=== PATIENT | female | born 1995 | race Caucasian/White ===

== ENCOUNTER 2017-04-04 04:16 | Emergency (ER) | payer OTHER ==
[~2017-04-04] VITALS: Ht 172.7 cm; Wt 81.7 kg
[~2017-04-04 04:16] MED LIST: ACET325; CLOTRIMAZOLE AF TOP; EMOQUETTE1 EACH PO; FLUC200 PO; IBUP600; IBUP600 PO; MULVITMIND PO; Zithromax250 MG PO; Zofran Odt4 MG SL
[2017-04-04 05:07] LABS: Source, Urine Clean Catch
[2017-04-04 05:16] LABS: Bilirubin, Urine Neg (Neg); Blood, Urine Neg (Neg); Glucose Qualitative, Urine Neg (Neg); Ketones, Urine Neg (Neg); Leukocyte Esterase, Urine Neg (Neg); Nitrite, Urine Neg (Neg); Protein, Urine Neg (Neg); Urobilinogen, Urine NORM (Normal); pH, Urine 6.5 (5.0-8.0)
[2017-04-04 05:25] LABS: Appearance, Urine Clear (Clear); Color, Urine Yellow (P-Yellow)
[2017-04-04 05:31] LABS: Influenza A Negative (NEGATIVE); Influenza B Negative (NEGATIVE)
[2017-04-04 05:32] LABS: U Amphetamine Screen Not Detected; U Barbituate Screen Not Detected; U Benzodiazapine Screen Not Detected; U Buprenorphine Screen Not Detected; U Cannabinoids Screen DETECTED; U Cocaine Screen Not Detected; U Methadone Screen Not Detected; U Methamphetamine Screen Not Detected; U Opiates Screen Not Detected; U Oxycodone Screen Not Detected; U Phencyclidine Screen Not Detected; U Propoxyphene Screen Not Detected
[2017-04-04] MEDS ORDERED: Zofran Odt4 MG PO (05:46)
[2017-04-04] MEDS ORDERED: LEVFLO500 PO (13:34)
[2017-04-04] MEDS ORDERED: Norco 5-325 Ta1 EACH PO (13:34)
[2017-04-04] MEDS ORDERED: IBUP800 PO (13:34)
[2017-11-06] MEDS ORDERED: BENZ100A PO (15:28)
[2017-11-06] MEDS ORDERED: Prednisone20 MG PO (15:28)
[2017-11-06] MEDS ORDERED: ALBU90OI INH (15:28)
== END 2017-04-04 06:17 | disposition home or self-care (01) ==
LOC: ER 04:16
PROVIDERS: Emergency Medicine
DX: J06.9 Acute upper respiratory infection, unspecified (principal); F17.210 Nicotine dependence, cigarettes, uncomplicated; Z88.0 Allergy status to penicillin
CPT/HCPCS: 71046; 81003; 81025; 87081; 87430; 87804; 99283

== ENCOUNTER 2017-04-04 11:12 | Emergency (ER) | payer OTHER ==
[~2017-04-04] VITALS: Ht 172.7 cm; Wt 81.7 kg
[~2017-04-04 11:12] MED LIST changes: +Zofran Odt4 MG PO
[2017-04-04 11:52] LABS: BASOPHILS ABSOLUTE AUTO 0.09 K/mm3 (0.00-0.23); BASOPHILS PERCENT AUTO 0 % (0-2); EOSINOPHILS ABSOLUTE AUTO 0.08 K/mm3 (0.00-0.68); EOSINOPHILS PERCENT AUTO 0 % (0-6); Hematocrit 36.5 % (33.0-51.0); Hemoglobin 12.4 g/dL (11.5-16.0); IMMATURE GRAN ABSOLUTE AUTO 0.19 K/mm3 (0.00-0.10); IMMATURE GRAN PERCENT AUTO 1 % (0-1); LYMPHOCYTES PERCENT AUTO 5 % (21-46); MONOCYTES PERCENT AUTO 8 % (4-13); Mean Corpuscular HGB 30.9 pg (26.0-34.0); Mean Corpuscular Volume 91 fL (80-100); Mean Platelet Volume 9.1 fL (9.1-12.4); NEUTROPHILS PERCENT AUTO 85 % (41-73); Platelet Count 350 K/mm3 (150-400); RDW Coefficient Variation 11.8 % (11.7-14.2); RDW Standard Deviation 39.7 fL (35.1-46.3); Red Blood Cell Count 4.01 M/mm3 (3.80-5.20); White Blood Cell Count 23.86 K/mm3 (4.00-11.30)
[2017-04-04 12:22] LABS: Alanine Aminotransfer (ALT/SGP 15 U/L (12-78); Albumin, Blood 3.9 g/dL (3.4-5.0); Albumin/Globulin Ratio 0.9 (0.8-1.8); Alk Phos 71 U/L (45-116); Anion Gap 8 mmol/L (6-16); Aspartate Aminotrans (AST/SGOT 14 U/L (12-37); Bilirubin, Total 0.8 mg/dL (0.1-1.0); Blood Urea Nitrogen 8 mg/dL (8-21); Bun/Creatinine Ratio 15.4 (12.0-20.0); CO2, Blood 26 mmol/L (21-32); Calcium, Blood 8.5 mg/dL (8.5-10.1); Chloride, Blood 103 mmol/L (98-108); Creatinine, Blood 0.52 mg/dL (0.40-1.00); Globulin, Blood 4.3 g/dL (2.2-4.0); Glomerular Filtration Rate >60 (60-); Glucose, Blood 99 mg/dL (70-99); Potassium, Blood 3.6 mmol/L (3.5-5.5); Sodium, Blood 137 mmol/L (136-145); Total Protein, Blood 8.2 g/dL (6.4-8.2)
[2017-04-04] MEDS ORDERED: IBUP800 PO (13:34)
[2017-04-04] MEDS ORDERED: Norco 5-325 Ta1 EACH PO (13:34)
[2017-04-04] MEDS ORDERED: LEVFLO500 PO (13:34)
[2017-11-06] MEDS ORDERED: BENZ100A PO (15:28)
[2017-11-06] MEDS ORDERED: Prednisone20 MG PO (15:28)
[2017-11-06] MEDS ORDERED: ALBU90OI INH (15:28)
== END 2017-04-04 14:19 | disposition home or self-care (01) ==
LOC: ER 11:12
PROVIDERS: Emergency Medicine
DX: R51 Headache (principal); R00.0 Tachycardia, unspecified; Z88.0 Allergy status to penicillin
CPT/HCPCS: 36415; 80053; 85025; 96361; 96374; 96375; 99283; J1170; J1885; J2765; J7030

== ENCOUNTER 2017-08-04 09:10 | Emergency (ER) | payer OTHER ==
[~2017-08-04] VITALS: Ht 175.3 cm; Wt 81.7 kg
[~2017-08-04 09:10] MED LIST changes: +IBUP800 PO; +LEVFLO500 PO; +Norco 5-325 Ta1 EACH PO
[2017-08-04] MEDS ORDERED: SINUS 12 HOUR120 MG PO (10:08)
[2017-08-04] MEDS ORDERED: Flonase 0.05% N16 GM (10:08)
[2017-08-04] MEDS ORDERED: MONDOXYNE NL100 MG PO (10:08)
== END 2017-08-04 10:14 | disposition home or self-care (01) ==
LOC: ER 09:10
DX: J32.9 Chronic sinusitis, unspecified (principal); Z88.0 Allergy status to penicillin; F17.200 Nicotine dependence, unspecified, uncomplicated
CPT/HCPCS: 99283

== ENCOUNTER 2017-08-16 18:49 | Emergency (ER) | payer OTHER ==
[~2017-08-16] VITALS: Ht 172.7 cm; Wt 81.7 kg
[~2017-08-16 18:49] MED LIST changes: +Flonase 0.05% N16 GM; +MONDOXYNE NL100 MG PO; +SINUS 12 HOUR120 MG PO
== END 2017-08-16 20:05 | disposition home or self-care (01) ==
LOC: ER 18:49
DX: S60.222A Contusion of left hand, initial encounter (principal); W22.8XXA Striking against or struck by other objects, initial encounter; Z88.0 Allergy status to penicillin; Z79.899 Other long term (current) drug therapy; F17.200 Nicotine dependence, unspecified, uncomplicated
CPT/HCPCS: 73130; 99283

== ENCOUNTER 2018-02-13 23:03 | Emergency (ER) | payer OTHER ==
[~2018-02-13] VITALS: Ht 175.3 cm; Wt 81.7 kg
[~2018-02-13 23:03] MED LIST changes: +ALBU90OI INH; +BENZ100A PO; +Prednisone20 MG PO
[2018-02-14 02:34] LABS: Source, Urine Clean Catch
[2018-02-14 02:38] LABS: Appearance, Urine Hazy (Clear); Bilirubin, Urine Neg (Neg); Blood, Urine 3+ (Neg); Color, Urine Yellow (P-Yellow); Glucose Qualitative, Urine Neg (Neg); Ketones, Urine Neg (Neg); Leukocyte Esterase, Urine 3+ (Neg); Nitrite, Urine Neg (Neg); Protein, Urine 2+ (Neg); Urobilinogen, Urine NORM (Normal)
[2018-02-14 02:47] LABS: Bacteria Many /hpf; Red Blood Cells, Urine 0-2 /hpf (0-2); Squamous Epithelial Cells Few /hpf (Few); White Blood Cells, Urine TNTC /hpf (0-5)
[2018-02-14] MEDS ORDERED: CEPH500 PO (03:28)
[2018-02-14] MEDS ORDERED: Pyridium100 MG PO (03:28)
== END 2018-02-14 03:40 | disposition home or self-care (01) ==
LOC: ER 23:03
PROVIDERS: Emergency Medicine
DX: N39.0 Urinary tract infection, site not specified (principal); Z88.0 Allergy status to penicillin; Z79.899 Other long term (current) drug therapy; Z79.52 Long term (current) use of systemic steroids; F17.290 Nicotine dependence, other tobacco product, uncomplicated
CPT/HCPCS: 81001; 87077; 87086; 87186; 99283

== ENCOUNTER 2018-03-27 16:52 | Emergency (ER) | payer OTHER ==
[~2018-03-27] VITALS: Ht 172.7 cm; Wt 86.2 kg
[~2018-03-27 16:52] MED LIST changes: +CEPH500 PO; +Pyridium100 MG PO
[2018-03-27] MEDS ORDERED: Sudogest60 MG PO (17:49)
[2018-03-27] MEDS ORDERED: Cheratussin AC118 ML PO (17:49)
== END 2018-03-27 17:56 | disposition home or self-care (01) ==
LOC: ER 16:52
DX: J02.9 Acute pharyngitis, unspecified (principal); Z88.0 Allergy status to penicillin; Z87.891 Personal history of nicotine dependence
CPT/HCPCS: 87081; 87430; 99283

== ENCOUNTER 2018-09-18 14:49 | Emergency (ER) | payer OTHER ==
[~2018-09-18] VITALS: Ht 172.7 cm; Wt 81.7 kg
[~2018-09-18 14:49] MED LIST changes: +Cheratussin AC118 ML PO; +Daily Vitamin1 EAC8 PO; +Monodox100 MG PO; +PSEU120ER PO; +Sudogest60 MG PO
[2018-09-18] MEDS ORDERED: IBUP800 PO (15:15)
== END 2018-09-18 15:27 | disposition home or self-care (01) ==
LOC: ER 14:49
DX: S83.91XA Sprain of unspecified site of right knee, initial encounter (principal); X58.XXXA Exposure to other specified factors, initial encounter; Z88.0 Allergy status to penicillin; Z79.899 Other long term (current) drug therapy; Z87.891 Personal history of nicotine dependence
CPT/HCPCS: 99283

== ENCOUNTER → 2019-01-13 | Outpatient (CLI) | payer SELFPAY ==
[2019-01-14 06:31] LABS: Candida species (DNA Probe) Positive (NEGATIVE); G. vaginalis (DNA Probe) Negative (NEGATIVE); T. vaginalis (DNA Probe) Negative (NEGATIVE)
[2019-01-16 02:06] LABS: CHLAMYDIA TRACHOMATIS, NAA Negative (Negative); NEISSERIA GONORRHOEAE, NAA Negative (Negative)
== END | disposition home or self-care (01) ==
LOC: LAB SHORT 11:27 → LAB EV 11:27
PROVIDERS: Physician Assistant
DX: R30.9 Painful micturition, unspecified (principal)
CPT/HCPCS: 87086; 87480; 87491; 87510; 87591; 87660

== ENCOUNTER 2019-12-26 15:34 | Emergency (ER) | payer OTHER ==
[~2019-12-26] VITALS: Ht 172.7 cm; Wt 77.1 kg
[2019-12-26] MEDS ORDERED: ALBU90OI INH (17:48)
[2019-12-26] MEDS ORDERED: DEXT30SU PO (17:48)
[2019-12-26] MEDS ORDERED: METPRE4DP PO (17:48)
[2019-12-26] MEDS ORDERED: Zithromax250 MG PO (17:48)
== END 2019-12-26 18:15 | disposition home or self-care (01) ==
LOC: ER 15:34
DX: J41.1 Mucopurulent chronic bronchitis (principal); Z88.0 Allergy status to penicillin; Z79.899 Other long term (current) drug therapy; Z87.891 Personal history of nicotine dependence
CPT/HCPCS: 71045; 99283-25

== ENCOUNTER 2020-01-23 18:08 | Emergency (ER) | payer OTHER ==
[~2020-01-23] VITALS: Ht 175.3 cm; Wt 77.1 kg
[~2020-01-23 18:08] MED LIST changes: +DEXT30SU PO; +METPRE4DP PO
[2020-01-23 19:07] LABS: BASOPHILS ABSOLUTE AUTO 0.05 K/mm3 (0.00-0.23); BASOPHILS PERCENT AUTO 1 % (0-2); EOSINOPHILS ABSOLUTE AUTO 0.37 K/mm3 (0.00-0.68); EOSINOPHILS PERCENT AUTO 6 % (0-6); Hematocrit 37.7 % (33.0-51.0); Hemoglobin 12.3 g/dL (11.5-16.0); IMMATURE GRAN ABSOLUTE AUTO 0.01 K/mm3 (0.00-0.10); IMMATURE GRAN PERCENT AUTO 0 % (0-1); LYMPHOCYTES ABSOLUTE AUTO 1.92 K/mm3 (0.84-5.20); LYMPHOCYTES PERCENT AUTO 30 % (21-46); MONOCYTES PERCENT AUTO 13 % (4-13); Mean Corpuscular HGB 30.7 pg (26.0-34.0); Mean Corpuscular HGB Conc 32.6 g/dL (31.5-36.5); Mean Corpuscular Volume 94 fL (80-100); NEUTROPHILS ABSOLUTE AUTO 3.17 K/mm3 (1.96-9.15); NEUTROPHILS PERCENT AUTO 50 % (41-73); Platelet Count 319 K/mm3 (150-400); RDW Coefficient Variation 11.6 % (11.7-14.2); RDW Standard Deviation 39.9 fL (35.1-46.3); Red Blood Cell Count 4.01 M/mm3 (3.80-5.20); White Blood Cell Count 6.32 K/mm3 (4.00-11.30)
[2020-01-23 19:43] LABS: Alanine Aminotransfer (ALT/SGP 15 U/L (12-78); Albumin, Blood 3.9 g/dL (3.4-5.0); Albumin/Globulin Ratio 1.1 (0.8-1.8); Alk Phos 48 U/L (50-136); Anion Gap 4 mmol/L (6-16); Aspartate Aminotrans (AST/SGOT 11 U/L (12-37); Bilirubin, Total 0.5 mg/dL (0.1-1.0); Blood Urea Nitrogen 14 mg/dL (8-24); Bun/Creatinine Ratio 19.8 (12.0-20.0); CO2, Blood 25 mmol/L (21-32); Calcium, Blood 9.2 mg/dL (8.5-10.1); Chloride, Blood 109 mmol/L (98-108); Creatinine, Blood 0.71 mg/dL (0.40-1.00); Globulin, Blood 3.6 g/dL (2.2-4.0); Glomerular Filtration Rate >60 (60-); Glucose, Blood 88 mg/dL (70-99); Potassium, Blood 4.3 mmol/L (3.5-5.5); Sodium, Blood 138 mmol/L (136-145); Total Protein, Blood 7.5 g/dL (6.4-8.2)
[2020-01-23 20:05] LABS: Source, Urine Clean Catch
[2020-01-23 20:07] LABS: Bilirubin, Urine Neg (Neg); Blood, Urine 1+ (Neg); Glucose Qualitative, Urine Neg (Neg); Ketones, Urine Neg (Neg); Leukocyte Esterase, Urine Neg (Neg); Nitrite, Urine Neg (Neg); Protein, Urine Neg (Neg); Specific Gravity, Urine 1.015 (1.003-1.022); Urobilinogen, Urine NORM (Normal); pH, Urine 6.5 (5.0-8.0)
[2020-01-23 20:15] LABS: Appearance, Urine Clear (Clear); Color, Urine Yellow (P-Yellow)
[2020-01-23 20:17] LABS: Bacteria Mod /hpf; Red Blood Cells, Urine 0-2 /hpf (0-2); Squamous Epithelial Cells Few /hpf (Few)
[2020-01-23] MEDS ORDERED: KEFLEX500 MG PO (22:04)
== END 2020-01-23 22:35 | disposition home or self-care (01) ==
LOC: ER 18:08
PROVIDERS: Emergency Medicine
DX: N39.0 Urinary tract infection, site not specified (principal); N12 Tubulo-interstitial nephritis, not specified as acute or chronic; Z88.0 Allergy status to penicillin; Z87.891 Personal history of nicotine dependence; Z79.899 Other long term (current) drug therapy
CPT/HCPCS: 36415; 80053; 81001; 81025; 85025; 87077; 87086; 87186; 96365; 99283-25; J0696

== ENCOUNTER 2020-03-13 12:45 | Emergency (ER) | payer OTHER ==
[~2020-03-13] VITALS: Ht 172.7 cm; Wt 72.6 kg
[~2020-03-13 12:45] MED LIST changes: +KEFLEX500 MG PO
[2020-03-13] MEDS ORDERED: FLONASE ALLERG9.9 ML (13:13)
[2020-03-13] MEDS ORDERED: LEVO750 PO (13:13)
[2020-03-13] MEDS ORDERED: PSEUDOEPHEDRINE30 M3 PO (13:13)
== END 2020-03-13 13:26 | disposition home or self-care (01) ==
LOC: ER 12:45
DX: J32.9 Chronic sinusitis, unspecified (principal); Z88.0 Allergy status to penicillin; Z87.891 Personal history of nicotine dependence
CPT/HCPCS: 99283

== ENCOUNTER 2020-05-28 12:22 | Emergency (ER) | payer OTHER ==
[~2020-05-28] VITALS: Ht 172.7 cm; Wt 79.4 kg
[~2020-05-28 12:22] MED LIST changes: +FLONASE ALLERG9.9 ML; +LEVO750 PO; +PSEUDOEPHEDRINE30 M3 PO
== END 2020-05-28 15:09 | disposition left against medical advice (07) ==
LOC: ER 12:22
DX: Z53.21 Procedure and treatment not carried out due to patient leaving prior to being seen by health care provider (principal)

== ENCOUNTER 2021-04-21 03:10 | Emergency (ER) | payer OTHER ==
[~2021-04-21] VITALS: Ht 175.3 cm; Wt 66.2 kg
[2021-04-21 03:59] LABS: Source, Urine Clean Catch
[2021-04-21 04:01] LABS: Bilirubin, Urine Neg (Neg); Blood, Urine 2+ (Neg); Glucose Qualitative, Urine Neg (Neg); Ketones, Urine Neg (Neg); Leukocyte Esterase, Urine 2+ (Neg); Nitrite, Urine Neg (Neg); Protein, Urine Neg (Neg); Specific Gravity, Urine 1.005 (1.003-1.022); Urobilinogen, Urine NORM (Normal)
[2021-04-21 04:08] LABS: Appearance, Urine Clear (Clear); Color, Urine Pale Yellow (P-Yellow)
[2021-04-21 04:10] LABS: Bacteria Few /hpf; Red Blood Cells, Urine 0-2 /hpf (0-2); Squamous Epithelial Cells Rare /hpf (Few)
[2021-04-21] MEDS ORDERED: NITR100CA PO (04:24)
== END 2021-04-21 22:09 | disposition home or self-care (01) ==
LOC: ER 03:10
PROVIDERS: Student in an Organized Health Care Education/Training Program
DX: N39.0 Urinary tract infection, site not specified (principal); Z87.891 Personal history of nicotine dependence; Z79.899 Other long term (current) drug therapy; Z88.0 Allergy status to penicillin
CPT/HCPCS: 81001; 81025; 87077; 87086; 87186; 99283; A9270

== ENCOUNTER 2022-03-13 11:19 | Emergency (ER) | payer OTHER ==
[~2022-03-13] VITALS: Ht 172.7 cm; Wt 74.8 kg
[~2022-03-13 11:19] MED LIST changes: +NITR100CA PO
[2022-03-13] MEDS ORDERED: ALBU90OI INH (11:40)
[2022-03-13 12:29] LABS: Influenza A, PCR NEGATIVE (NEGATIVE); Influenza B, PCR NEGATIVE (NEGATIVE); Resp Syncytial Virus, PCR NEGATIVE (NEGATIVE); SARS-Cov-2 (COVID-19) PCR, MMC NEGATIVE (NEGATIVE)
== END 2022-03-13 12:34 | disposition home or self-care (01) ==
LOC: ER 11:19
PROVIDERS: Emergency Medicine
DX: J06.9 Acute upper respiratory infection, unspecified (principal); Z20.822 Contact with and (suspected) exposure to COVID-19; Z88.0 Allergy status to penicillin; Z87.891 Personal history of nicotine dependence
CPT/HCPCS: 0241U

== ENCOUNTER 2022-11-29 18:13 | Emergency (ER) | payer OTHER ==
[~2022-11-29] VITALS: Ht 175.3 cm; Wt 77.1 kg
[2022-11-29 18:37] VITALS: BP 118/67
== END 2022-11-29 20:40 | disposition home or self-care (01) ==
LOC: ER 18:13
DX: M94.0 Chondrocostal junction syndrome [Tietze] (principal); Z88.0 Allergy status to penicillin; Z79.899 Other long term (current) drug therapy; Z87.891 Personal history of nicotine dependence
CPT/HCPCS: 71046; 96372; 99284-25; J1885

== ENCOUNTER 2023-12-15 12:11 | Emergency (ER) | payer OTHER ==
[~2023-12-15] VITALS: Ht 175.3 cm; Wt 80.7 kg
[2023-12-15 12:15] VITALS: BP 127/72
[2023-12-15 12:36] LABS: Source, Urine Clean Catch
[2023-12-15 12:49] LABS: BASOPHILS ABSOLUTE AUTO 0.06 K/mm3 (0.00-0.23); BASOPHILS PERCENT AUTO 1 % (0-2); EOSINOPHILS ABSOLUTE AUTO 0.13 K/mm3 (0.00-0.68); EOSINOPHILS PERCENT AUTO 2 % (0-6); Hematocrit 35.4 % (33.0-51.0); IMMATURE GRAN ABSOLUTE AUTO 0.01 K/mm3 (0.00-0.10); IMMATURE GRAN PERCENT AUTO 0 % (0-1); LYMPHOCYTES ABSOLUTE AUTO 1.92 K/mm3 (0.84-5.20); LYMPHOCYTES PERCENT AUTO 35 % (21-46); MONOCYTES ABSOLUTE AUTO 0.51 K/mm3 (0.16-1.47); MONOCYTES PERCENT AUTO 9 % (4-13); Mean Corpuscular HGB 31.8 pg (26.0-34.0); Mean Corpuscular HGB Conc 33.9 g/dL (31.5-36.5); Mean Corpuscular Volume 94 fL (80-100); Mean Platelet Volume 8.9 fL (9.1-12.4); NEUTROPHILS ABSOLUTE AUTO 2.92 K/mm3 (1.96-9.15); NEUTROPHILS PERCENT AUTO 53 % (41-73); Platelet Count 311 K/mm3 (150-400); RDW Coefficient Variation 11.5 % (11.7-14.2); RDW Standard Deviation 39.7 fL (35.1-46.3); Red Blood Cell Count 3.77 M/mm3 (3.80-5.20); White Blood Cell Count 5.55 K/mm3 (4.00-11.30)
[2023-12-15 12:51] LABS: Appearance, Urine Clear (Clear); Bilirubin, Urine Neg (Neg); Blood, Urine Neg (Neg); Glucose Qualitative, Urine Neg (Neg); Ketones, Urine Neg (Neg); Leukocyte Esterase, Urine Neg (Neg); Nitrite, Urine Neg (Neg); Protein, Urine Neg (Neg); Urobilinogen, Urine NORM (Normal); pH, Urine 6.5 (5.0-8.0)
[2023-12-15 12:59] LABS: Color, Urine Pale Yellow (P-Yellow)
[2023-12-15 13:05] LABS: Albumin, Blood 3.6 g/dL (3.4-5.0); Bilirubin, Total 0.3 mg/dL (0.1-1.0); Bun/Creatinine Ratio 19.5 (12.0-20.0); Calcium, Blood 8.8 mg/dL (8.5-10.1); Creatinine, Blood 0.67 mg/dL (0.40-1.00); Globulin, Blood 3.5 g/dL (2.2-4.0); Potassium, Blood 4.1 mmol/L (3.5-5.5); Total Protein, Blood 7.1 g/dL (6.4-8.2)
== END 2023-12-15 15:11 | disposition home or self-care (01) ==
LOC: ER 12:11
PROVIDERS: Physician Assistant
DX: N83.01 Follicular cyst of right ovary (principal); Z87.891 Personal history of nicotine dependence; Z88.0 Allergy status to penicillin; Z59.89 Other problems related to housing and economic circumstances
CPT/HCPCS: 74177; 80053; 81003; 81025; 83690; 85025; 99284-25; Q9967

== ENCOUNTER 2024-03-09 13:12 | Emergency (ER) | payer OTHER ==
[~2024-03-09] VITALS: Ht 175.3 cm; Wt 79.4 kg
[2024-03-09 13:49] VITALS: BP 120/73
[2024-03-09] MEDS ORDERED: Ketorolac Tromethamine 15mg Vial IM ONE (15:05)
== END 2024-03-09 15:12 | disposition home or self-care (01) ==
LOC: ER 13:12
DX: S50.01XA Contusion of right elbow, initial encounter (principal); W17.89XA Other fall from one level to another, initial encounter; Z88.0 Allergy status to penicillin; Z87.891 Personal history of nicotine dependence
CPT/HCPCS: 73080; 96374; 99283-25; J1885

== ENCOUNTER 2024-03-28 05:55 | Day surgery (SDC) | payer OTHER ==
[~2024-03-28] VITALS: Ht 172.7 cm; Wt 80.0 kg
[2024-03-28] VITALS (12 sets, daily range): BP systolic 89–114; BP diastolic 48–64
[2024-03-28] MEDS ORDERED: Lactated Ringer's 1,000 ML IV SCH (06:20)
[2024-03-28] MEDS ORDERED: Clindamycin 600mg in D5W 50 ML IV SCH (06:37)
[2024-03-28] MEDS ORDERED: Gentamicin Sulfate 100 MG in NS 100 ML IV SCH (06:38)
--- NOTE | 2024-03-28 07:17 | NUR ---
History, Chart, Medications and Allergies reviewed before start of procedure. Patient up to Ambulate independently. Gait steady. Pre-Op teaching done. Pt verbalizes understanding. Patient confirms NPO status and agrees with scheduled surgery. Patient reports completing Chlorhexadine shower X2 prior to admission to hospital. Surgical site prepped with 2% Chlorhexidine cloth wipe. Patient States Post-Procedure ride home has been arranged.
[2024-03-28] MEDS ORDERED: propofoL 20 ML IV ONE (07:19)
[2024-03-28] MEDS ORDERED: Dexamethasone Sod Phos 10 MG/ML 1ML VIAL ONE (07:19)
[2024-03-28] MEDS ORDERED: Rocuronium Bromide 10 MG/ML 5ML Injection IV ONE ×2 (07:19)
[2024-03-28] MEDS ORDERED: Ketorolac Tromethamine 30mg Vial ONE (07:19)
[2024-03-28] MEDS ORDERED: FentaNYL Citrate 50 MCG/ML 5 ML Injection ONE ×2 (07:19→08:31)
[2024-03-28] MEDS ORDERED: Ondansetron HCl 2 MG / ML 2ML Vial ONE ×3 (07:20→11:17)
[2024-03-28] MEDS ORDERED: Lidocaine HCl 2% 20 ML MDV ONE (07:20)
[2024-03-28] MEDS ORDERED: Sugammadex Sodium 200 MG/2ML SDV (100 MG/ML) ONE (07:24)
[2024-03-28] MEDS ORDERED: Gentamicin Sulfate 100 MG in NS 100 ML IV ONE (07:38)
[2024-03-28] MEDS ORDERED: Clindamycin 600mg in D5W 50 ML IV ONE (07:46)
[2024-03-28] MEDS ORDERED: Bupivacaine 0.5% HCl 5 MG/ML 30MLVIAL INJ ONE (08:02)
[2024-03-28] MEDS ORDERED: Glycopyrrolate 0.2 MG/ML 5ML VIAL ONE (08:10)
[2024-03-28] MEDS ORDERED: Bupivacaine 0.5% HCl 5 MG/ML 30MLVIAL ONE (08:28)
[2024-03-28] MEDS ORDERED: ePHEDrine Sulfate 50 MG/ML 1ML Injection ONE (08:46)
--- NOTE | 2024-03-28 10:15 | NUR ---
INTO STEP VIA [facility]. PT REPORTS 07/07 ABDOMINAL/INCISIONAL PAIN. ABDOMEN WITH EXOFEN X 4-C/D/I. BLAYNE PAD IN PLACE-NO NOTED DRAINAGE. PT GIVEN PO FOOD AND FLUIDS.
[2024-03-28] MEDS ORDERED: OxyCODONE 5 mg/Acetamin 325 mg TABLET PO PRN ×2 (10:30→10:35)
--- NOTE | 2024-03-28 11:15 | NUR ---
PT REPORTS 6/10 ABDOMINAL/INCISIONAL PAIN ON THE LEFT>RIGHT. MED WITH ADDITIONAL PERCOCET-SEE EMAR. PT REPORTS NAUSEA-MED WITH ZOFRAN 4 MG IVP X 1-SEE EMAR.
[2024-03-28] MEDS ORDERED: Ondansetron HCl 2 MG / ML 2ML Vial IV ONE (11:20)
--- NOTE | 2024-03-28 11:55 | NUR ---
PT AMBULATED TO THE BATHROOM WITHOUT DIFFICULTY PT ABLE TO VOID. BLAYNE PAD WITH MODERATE AMOUNT OF SANGINOUS DRAINAGE. PT DISCHARGED TO HOME-OUT VIA WHEELCHAIR WITH BELONGINGS AND DISCHARGE INSTRUCTIONS ON HAND. PT FRIEND CARI DRIVING.
== END 2024-03-28 11:55 | disposition home or self-care (01) ==
LOC: ORSCMMR 05:55 → ORD 07:30 → ORSCMMR 11:55
PROVIDERS: Obstetrics & Gynecology
PROC: 0U5F4ZZ Destruction of Cul-de-sac, Percutaneous Endoscopic Approach (ICD-10-PCS; principal; 2024-03-28 07:30)
PROC: 0U514ZZ Destruction of Left Ovary, Percutaneous Endoscopic Approach (ICD-10-PCS; principal; 2024-03-28 07:30)
DX: N92.0 Excessive and frequent menstruation with regular cycle (principal); N94.6 Dysmenorrhea, unspecified; N80.329 Endometriosis of the posterior cul-de-sac, unspecified depth; N80.353 Endometriosis of bilateral pelvic sidewall, unspecified depth; N83.12 Corpus luteum cyst of left ovary
CPT/HCPCS: 88305; A9270; J1100; J1580; J1885; J2405; J2704; J3010; J7120

== ENCOUNTER 2024-10-21 18:13 | Emergency (ER) | payer OTHER ==
[~2024-10-21] VITALS: Ht 175.3 cm; Wt 74.8 kg
[2024-10-21 18:32] VITALS: BP 132/73
== END 2024-10-21 18:41 | disposition home or self-care (01) ==
LOC: ER 18:13
DX: S40.251A Superficial foreign body of right shoulder, initial encounter (principal); Z88.0 Allergy status to penicillin; W20.8XXA Other cause of strike by thrown, projected or falling object, initial encounter
CPT/HCPCS: 99283

== ENCOUNTER 2025-02-22 16:18 | Emergency (ER) | payer OTHER ==
[~2025-02-22] VITALS: Ht 175.3 cm; Wt 58.5 kg
[2025-02-22] MEDS ORDERED: Ondansetron HCl 2 MG / ML 2ML Vial IV ONE ×2 (16:30→21:20)
[2025-02-22] MEDS ORDERED: NS 1,000 ML IV SCH ×2 (16:30→21:20)
[2025-02-22] MEDS ORDERED: Ketorolac Tromethamine 15mg Vial IV ONE ×3 (16:30→23:00)
[2025-02-22 16:59] LABS: BASOPHILS ABSOLUTE AUTO 0.07 K/mm3 (0.00-0.23); BASOPHILS PERCENT AUTO 1 % (0-2); EOSINOPHILS ABSOLUTE AUTO 0.12 K/mm3 (0.00-0.68); EOSINOPHILS PERCENT AUTO 2 % (0-6); Hematocrit 37.2 % (33.0-51.0); Hemoglobin 12.8 g/dL (11.5-16.0); IMMATURE GRAN ABSOLUTE AUTO 0.04 K/mm3 (0.00-0.10); IMMATURE GRAN PERCENT AUTO 1 % (0-1); LYMPHOCYTES ABSOLUTE AUTO 1.77 K/mm3 (0.84-5.20); LYMPHOCYTES PERCENT AUTO 27 % (21-46); MONOCYTES ABSOLUTE AUTO 0.67 K/mm3 (0.16-1.47); MONOCYTES PERCENT AUTO 10 % (4-13); Mean Corpuscular HGB Conc 34.4 g/dL (31.5-36.5); Mean Corpuscular Volume 93 fL (80-100); NEUTROPHILS ABSOLUTE AUTO 3.98 K/mm3 (1.96-9.15); NEUTROPHILS PERCENT AUTO 60 % (41-73); NRBC ABSOLUTE 0.00 K/mm3 (0.00-0.02); NRBC Auto 0.0 /100 WBC (0.0-0.2); Platelet Count 311 K/mm3 (150-400); RDW Coefficient Variation 11.9 % (11.7-14.2); RDW Standard Deviation 41.1 fL (35.1-46.3)
[2025-02-22 17:23] LABS: Alanine Aminotransfer (ALT/SGP 20 U/L (12-78); Albumin, Blood 4.2 g/dL (3.4-5.0); Albumin/Globulin Ratio 1.1 (0.8-1.8); Anion Gap 7 mmol/L (3-11); Aspartate Aminotrans (AST/SGOT 15 U/L (12-37); Beta HCG, Quantitative, Serum <1 mIU/mL (0-3); Bilirubin, Total 0.5 mg/dL (0.1-1.0); Blood Urea Nitrogen 15 mg/dL (8-24); CO2, Blood 26 mmol/L (21-32); Calcium, Blood 9.1 mg/dL (8.5-10.1); Chloride, Blood 107 mmol/L (98-108); Creatinine, Blood 0.75 mg/dL (0.40-1.00); Globulin, Blood 3.8 g/dL (2.2-4.0); Glucose, Blood 92 mg/dL (70-99); Potassium, Blood 4.1 mmol/L (3.5-5.5); Sodium, Blood 136 mmol/L (136-145); Total Protein, Blood 8.0 g/dL (6.4-8.2)
[2025-02-22 21:24] LABS: Source, Urine Clean Catch
[2025-02-22 21:28] LABS: Bilirubin, Urine Neg (Neg); Color, Urine Yellow (P-Yellow); Glucose Qualitative, Urine Neg (Neg); Ketones, Urine Neg (Neg); Leukocyte Esterase, Urine Neg (Neg); Protein, Urine Neg (Neg); Specific Gravity, Urine 1.010 (1.003-1.022); Urobilinogen, Urine NORM (Normal)
[2025-02-22 21:35] LABS: White Blood Cells, Urine 0-2 /hpf (0-5)
[2025-02-22 21:36] LABS: Red Blood Cells, Urine 25-50 /hpf (0-2)
[2025-02-22] MEDS ORDERED: ONDA4ODT MM (22:59)
[2025-02-22] MEDS ORDERED: RX Prepack 2 Tabs Ondansetron ODT 4MG UD ONE (23:00)
[2025-02-22 23:28] VITALS: BP 112/76
== END 2025-02-22 23:28 | disposition home or self-care (01) ==
LOC: ER 16:18
PROVIDERS: Student in an Organized Health Care Education/Training Program
DX: N83.201 Unspecified ovarian cyst, right side (principal); Z88.0 Allergy status to penicillin; Z87.891 Personal history of nicotine dependence
CPT/HCPCS: 76830; 76856; 80053; 81001; 83690; 84702; 85025; 96361; 96374; 96375; 99284-25; A9270; J1885; J2405; J7030